=== PATIENT | female | born 1945 | race Caucasian/White ===

== ENCOUNTER 2017-02-05 15:44 | Inpatient (IN) | payer MEDICARE, OTHER ==
[~2017-02-05] VITALS: Ht 172.7 cm; Wt 115.6 kg
[2017-02-05] MEDS ORDERED: HYDR-309 PO (16:10)
[2017-02-05] MEDS ORDERED: LORA0.5T2 PO (16:10)
[2017-02-05] MEDS ORDERED: CELE100 PO (16:10)
[2017-02-05 16:40] LABS: BASOPHILS % (AUTO) 0.5 % (0.0-2.0); EOSINOPHILS % (AUTO) 1.1 % (1.0-6.0); HEMATOCRIT 42.6 % (36-46); HEMOGLOBIN 13.6 g/dL (12.0-16.0); LYMPHOCYTES # (AUTO) 2.8 K/uL (1.0-4.8); LYMPHOCYTES % (AUTO) 20.6 % (22.0-44.0); MEAN CORPUSCULAR HEMOGLOBIN 28.3 pg (26.0-34.0); MEAN CORPUSCULAR HGB CONC 31.9 G/dL (31.0-37.0); MEAN CORPUSCULAR VOLUME 89 fL (80-100); MONOCYTES % (AUTO) 7.6 % (2.0-9.0); NEUTROPHILS # (AUTO) 9.6 K/uL (1.8-7.7); NEUTROPHILS % (AUTO) 70.2 % (40.0-70.0); PLATELET COUNT (AUTO) 425 K/uL (150-450); RED CELL DISTRIBUTION WIDTH 14.2 % (11.5-14.5); WHITE BLOOD COUNT (AUTO) 13.7 K/uL (4.5-11.0)
[2017-02-05 16:51] LABS: PROTHROMBIN TIME 10.3 SEC (9.4-11.6)
[2017-02-05 17:04] LABS: ANION GAP 11 mmol/L (8-16); CALCIUM, TOTAL 9.6 mg/dL (8.8-10.5); CREATININE 0.97 mg/dL (0.60-1.30); GLOMERULAR FILTR. RATE CALC 57 mL/min (>60); SODIUM SERUM 140 mmol/L (136-145)
[2017-02-05 17:05] LABS: B-TYPE NATRIURETIC PEPTIDE 35 pg/mL (0-100); CARBON DIOXIDE 25 mmol/L (22-29); CHLORIDE 104 mmol/L (98-107); UREA NITROGEN, BLOOD 25 mg/dL (7-18)
[2017-02-05 17:08] LABS: LACTIC ACID 1.7 mmol/L (0.4-2.0)
[2017-02-05 17:13] LABS: ALANINE AMINOTRANSFERASE 24 U/L (12-78); ASPARTATE AMINOTRANSFERASE 11 U/L (15-37); BILIRUBIN,TOTAL 0.5 mg/dL (0.1-1.0); CREATINE KINASE, TOTAL 32 U/L (26-192); LACTATE DEHYDROGENASE 116 U/L (81-234); TOTAL PROTEIN, SERUM 7.6 g/dL (6.4-8.2)
[2017-02-05 17:14] LABS: ALBUMIN 3.4 g/dL (3.4-5.0)
[2017-02-05 17:43] LABS: PROCALCITONIN (PCT) < 0.05 ng/mL (<0.50)
[2017-02-05 17:44] LABS: APPEARANCE,URINE CLEAR (CLEAR); GLUCOSE, URINE (UA) NEGATIVE (NEGATIVE); KETONES,URINE NEGATIVE (NEGATIVE); LEUKOCYTE ESTERASE ,URINE NEGATIVE (NEGATIVE); OCCULT BLOOD,URINE TRACE (NEGATIVE); PROTEIN,URINE TRACE (NEGATIVE)
[2017-02-05 17:46] LABS: ADD UA MICROSCOPIC YES
[2017-02-05] MEDS ORDERED: ONDANSETRON HCL 4 MG/2 ML VIAL IVP ONE (18:00)
[2017-02-05] MEDS ORDERED: HYDROmorphone 2 MG/ML SYRINGE IVP ONE (18:00)
[2017-02-05 18:16] LABS: RBC,URINE 0-2 /HPF (0-2); WBC,URINE 0-2 /HPF (0-5)
[2017-02-05] MEDS ORDERED: ASPIRIN 325 MG TABLET PO ONE (19:30)
[2017-02-05] MEDS ORDERED: ONDANSETRON HCL 4 MG/2 ML VIAL IVP PRN (19:30)
[2017-02-05] MEDS ORDERED: 0.9% SODIUM CHLORIDE 10 ML SYRINGE IVP PRN (19:30)
[2017-02-05] MEDS ORDERED: ACETAMINOPHEN 325 MG TABLET PO PRN ×2 (19:30→23:15)
[2017-02-05] MEDS ORDERED: NITROGLYCERIN 2% (1 GM=INCH) PACKET TP ONE (19:30)
[2017-02-05 21:32] VITALS: BP 105/59
[2017-02-05] MEDS ORDERED: ZOLPIDEM TARTRATE 5 MG TABLET PO PRN (23:15)
[2017-02-05] MEDS ORDERED: IPRATROPIUM BROMIDE 0.5 MG/2.5 ML NEB SOLUTION NEB PRN (23:15)
[2017-02-05] MEDS ORDERED: ALBUTEROL SULFATE 2.5 MG/0.5 ML NEB SOLUTION NEB PRN (23:15)
[2017-02-05] MEDS ORDERED: MORPHINE SULFATE 2 MG/ML SYRINGE IVP PRN (23:30)
[2017-02-05] MEDS ORDERED: SODIUM CHLORIDE 0.9% 1,000 ML IV ONE (23:46)
[2017-02-05 23:49] VITALS: BP 94/45
[2017-02-06] VITALS (8 sets, daily range): BP systolic 84–124; BP diastolic 33–58
[2017-02-06] MEDS ORDERED: SODIUM CHLORIDE 0.9% 1,000 ML IV SCH
[2017-02-06 06:36] LABS: BASOPHILS % (AUTO) 0.6 % (0.0-2.0); EOSINOPHILS % (AUTO) 2.5 % (1.0-6.0); HEMATOCRIT 34.5 % (36-46); HEMOGLOBIN 11.1 g/dL (12.0-16.0); LYMPHOCYTES # (AUTO) 3.8 K/uL (1.0-4.8); LYMPHOCYTES % (AUTO) 32.9 % (22.0-44.0); MEAN CORPUSCULAR HEMOGLOBIN 28.7 pg (26.0-34.0); MEAN CORPUSCULAR HGB CONC 32.3 G/dL (31.0-37.0); MEAN CORPUSCULAR VOLUME 89 fL (80-100); NEUTROPHILS # (AUTO) 6.4 K/uL (1.8-7.7); PLATELET COUNT (AUTO) 369 K/uL (150-450); RED BLOOD CELL COUNT(AUTO) 3.88 MIL/uL (4.00-5.20); RED CELL DISTRIBUTION WIDTH 14.2 % (11.5-14.5); WHITE BLOOD COUNT (AUTO) 11.6 K/uL (4.5-11.0)
[2017-02-06 06:55] LABS: ALANINE AMINOTRANSFERASE 20 U/L (12-78); ALBUMIN 2.7 g/dL (3.4-5.0); ANION GAP 6 mmol/L (8-16); ASPARTATE AMINOTRANSFERASE 12 U/L (15-37); BILIRUBIN,TOTAL 0.4 mg/dL (0.1-1.0); CALCIUM, TOTAL 8.3 mg/dL (8.8-10.5); CARBON DIOXIDE 27 mmol/L (22-29); CHLORIDE 106 mmol/L (98-107); CREATININE 0.73 mg/dL (0.60-1.30); GLOMERULAR FILTR. RATE CALC > 60 mL/min (>60); POTASSIUM 4.1 mmol/L (3.5-5.1); SODIUM SERUM 139 mmol/L (136-145); UREA NITROGEN, BLOOD 21 mg/dL (7-18)
[2017-02-06] MEDS: PANTOPRAZOLE SODIUM 40 MG/VIAL IVP SCH (08:36)
[2017-02-06] MEDS: CELECOXIB 100 MG CAPSULE PO SCH ×2 (08:39→18:21)
[2017-02-06] MEDS: IPRATROPIUM BROMIDE 0.5 MG/2.5 ML NEB SOLUTION NEB SCH ×3 (08:54→20:00)
[2017-02-06] MEDS ORDERED: HYDROCODONE/ACETAMINOPHEN 5-325 MG TABLET PO SCH (09:00)
[2017-02-06] MEDS: LORazepam 0.5 MG TABLET PO SCH (09:00)
[2017-02-06] MEDS: NYSTATIN 15 GM POWDER BOTTLE TP PRN ×2 (12:14→17:23)
[2017-02-06] MEDS: ALBUTEROL SULFATE 2.5 MG/0.5 ML NEB SOLUTION NEB SCH ×2 (16:25→20:00)
[2017-02-06] MEDS: SODIUM CHLORIDE 0.9% 1,000 ML IV SCH ×2 (17:23→17:28)
[2017-02-06] MEDS: HYDROCODONE/ACETAMINOPHEN 5-325 MG TABLET PO PRN (17:33)
[2017-02-07] MEDS ORDERED: 0.9% SODIUM CHLORIDE 10 ML SYRINGE IVP PRN (00:15)
[2017-02-07] MEDS: ALBUTEROL SULFATE 2.5 MG/0.5 ML NEB SOLUTION NEB SCH ×4 (01:50→19:53)
[2017-02-07] MEDS: IPRATROPIUM BROMIDE 0.5 MG/2.5 ML NEB SOLUTION NEB SCH ×4 (01:50→19:53)
[2017-02-07] MEDS: SODIUM CHLORIDE 0.9% 1,000 ML IV SCH ×2 (04:24→12:22)
[2017-02-07 05:32] VITALS: BP 133/45
[2017-02-07 07:33] VITALS: BP 102/45
[2017-02-07] MEDS: CELECOXIB 100 MG CAPSULE PO SCH ×2 (08:31→18:20)
[2017-02-07] MEDS: PANTOPRAZOLE SODIUM 40 MG/VIAL IVP SCH (08:32)
[2017-02-07] MEDS: LORazepam 0.5 MG TABLET PO SCH (08:32)
[2017-02-07] MEDS ORDERED: LURASIDONE HCL 40 MG TABLET PO SCH (11:30)
[2017-02-07 11:39] VITALS: BP 107/41
[2017-02-07] MEDS: ESCITALOPRAM OXALATE 10 MG TABLET PO SCH (12:22)
[2017-02-07 15:06] VITALS: BP 111/44
[2017-02-07 19:41] VITALS: BP 110/67
[2017-02-07] MEDS ORDERED: DULO60CA44 PO (22:46)
[2017-02-07] MEDS: LORazepam 1 MG TABLET PO PRN (22:51)
[2017-02-07] MEDS: HYDROCODONE/ACETAMINOPHEN 5-325 MG TABLET PO PRN (22:51)
[2017-02-07 23:39] VITALS: BP 96/43
[2017-02-08] MEDS ORDERED: LURA40 PO (00:24)
[2017-02-08] MEDS ORDERED: FAMO20 PO (00:28)
[2017-02-08] MEDS ORDERED: ATOR40TA28 PO (00:28)
[2017-02-08] MEDS ORDERED: TROS60CA3 PO (00:28)
[2017-02-08] MEDS ORDERED: HYDR-4031 PO (00:28)
[2017-02-08] MEDS ORDERED: VITAD1000 PO (00:29)
[2017-02-08] MEDS ORDERED: ONDA4 PO (00:31)
[2017-02-08] MEDS ORDERED: LORA1TAB3 PO (00:31)
[2017-02-08] MEDS: ALBUTEROL SULFATE 2.5 MG/0.5 ML NEB SOLUTION NEB SCH ×4 (02:00→20:00)
[2017-02-08] MEDS: IPRATROPIUM BROMIDE 0.5 MG/2.5 ML NEB SOLUTION NEB SCH ×4 (02:00→20:00)
[2017-02-08 04:08] VITALS: BP 112/48
[2017-02-08] MEDS: SODIUM CHLORIDE 0.9% 1,000 ML IV SCH ×2 (06:09→16:57)
[2017-02-08 07:27] VITALS: BP 130/60
[2017-02-08 10:57] VITALS: BP 110/66
[2017-02-08] MEDS: CELECOXIB 100 MG CAPSULE PO SCH ×2 (12:10→19:39)
[2017-02-08] MEDS: PANTOPRAZOLE SODIUM 40 MG/VIAL IVP SCH (12:10)
[2017-02-08] MEDS: ESCITALOPRAM OXALATE 10 MG TABLET PO SCH (12:10)
[2017-02-08] MEDS: LORazepam 0.5 MG TABLET PO SCH (12:12)
[2017-02-08 14:53] VITALS: BP 101/47
[2017-02-08 19:37] VITALS: BP 122/62
[2017-02-09] VITALS (7 sets, daily range): BP systolic 104–134; BP diastolic 43–75
[2017-02-09] MEDS: HYDROCODONE/ACETAMINOPHEN 5-325 MG TABLET PO PRN ×3 (00:50→22:33)
[2017-02-09] MEDS: LORazepam 1 MG TABLET PO PRN ×2 (00:50→22:33)
[2017-02-09] MEDS: ALBUTEROL SULFATE 2.5 MG/0.5 ML NEB SOLUTION NEB SCH ×4 (01:44→21:09)
[2017-02-09] MEDS: IPRATROPIUM BROMIDE 0.5 MG/2.5 ML NEB SOLUTION NEB SCH ×4 (01:44→21:09)
[2017-02-09] MEDS: SODIUM CHLORIDE 0.9% 1,000 ML IV SCH ×3 (02:45→22:33)
[2017-02-09] MEDS: PANTOPRAZOLE SODIUM 40 MG/VIAL IVP SCH (11:40)
[2017-02-09] MEDS: ESCITALOPRAM OXALATE 10 MG TABLET PO SCH (11:41)
[2017-02-09] MEDS: CELECOXIB 100 MG CAPSULE PO SCH ×2 (11:41→17:36)
[2017-02-09] MEDS: LORazepam 0.5 MG TABLET PO SCH (11:41)
[2017-02-09] MEDS ORDERED: ALBU8HFA IH (14:47)
[2017-02-09] MEDS ORDERED: ESCI10TA PO (14:50)
[2017-02-10] MEDS: ALBUTEROL SULFATE 2.5 MG/0.5 ML NEB SOLUTION NEB SCH ×5 (02:00→21:09)
[2017-02-10] MEDS: IPRATROPIUM BROMIDE 0.5 MG/2.5 ML NEB SOLUTION NEB SCH ×5 (02:00→21:09)
[2017-02-10 05:02] VITALS: BP 111/57
[2017-02-10] MEDS: CELECOXIB 100 MG CAPSULE PO SCH ×2 (08:00→18:50)
[2017-02-10] MEDS: SODIUM CHLORIDE 0.9% 1,000 ML IV SCH ×2 (08:45→18:51)
[2017-02-10] MEDS: PANTOPRAZOLE SODIUM 40 MG/VIAL IVP SCH (09:00)
[2017-02-10] MEDS: ESCITALOPRAM OXALATE 10 MG TABLET PO SCH ×2 (09:00→12:01)
[2017-02-10] MEDS: LORazepam 0.5 MG TABLET PO SCH (09:00)
[2017-02-10 11:59] VITALS: BP 137/53
[2017-02-10] MEDS: LORazepam 1 MG TABLET PO PRN (12:01)
[2017-02-10] MEDS: HYDROCODONE/ACETAMINOPHEN 5-325 MG TABLET PO PRN ×2 (12:02→18:50)
[2017-02-10 15:50] VITALS: BP 101/42
[2017-02-10 19:48] VITALS: BP 117/52
[2017-02-11 00:46] VITALS: BP 112/52
[2017-02-11] MEDS: ALBUTEROL SULFATE 2.5 MG/0.5 ML NEB SOLUTION NEB SCH ×4 (02:00→20:00)
[2017-02-11] MEDS: IPRATROPIUM BROMIDE 0.5 MG/2.5 ML NEB SOLUTION NEB SCH ×4 (02:00→20:00)
[2017-02-11 07:22] VITALS: BP 116/62
[2017-02-11] MEDS: CELECOXIB 100 MG CAPSULE PO SCH ×2 (09:08→18:50)
[2017-02-11] MEDS: LORazepam 0.5 MG TABLET PO SCH (09:08)
[2017-02-11] MEDS: ESCITALOPRAM OXALATE 10 MG TABLET PO SCH (09:08)
[2017-02-11] MEDS: PANTOPRAZOLE SODIUM 40 MG/VIAL IVP SCH (09:08)
[2017-02-11 11:10] VITALS: BP 116/68
[2017-02-11 15:08] VITALS: BP 106/69
[2017-02-11] MEDS: HYDROCODONE/ACETAMINOPHEN 5-325 MG TABLET PO PRN (16:09)
[2017-02-11 19:57] VITALS: BP 105/51
[2017-02-11 23:40] VITALS: BP 120/56
[2017-02-12] MEDS: LORazepam 1 MG TABLET PO PRN ×2 (00:04→16:18)
[2017-02-12] MEDS: HYDROCODONE/ACETAMINOPHEN 5-325 MG TABLET PO PRN ×2 (00:04→16:18)
[2017-02-12] MEDS: IPRATROPIUM BROMIDE 0.5 MG/2.5 ML NEB SOLUTION NEB SCH ×3 (02:00→16:46)
[2017-02-12] MEDS: ALBUTEROL SULFATE 2.5 MG/0.5 ML NEB SOLUTION NEB SCH ×3 (02:00→16:46)
[2017-02-12 04:46] VITALS: BP 113/45
[2017-02-12 07:30] VITALS: BP 122/52
[2017-02-12] MEDS: PANTOPRAZOLE SODIUM 40 MG/VIAL IVP SCH (09:00)
[2017-02-12] MEDS: SODIUM CHLORIDE 0.9% 1,000 ML IV SCH (09:00)
[2017-02-12] MEDS: CELECOXIB 100 MG CAPSULE PO SCH (09:03)
[2017-02-12] MEDS: ESCITALOPRAM OXALATE 10 MG TABLET PO SCH (09:03)
[2017-02-12] MEDS: LORazepam 0.5 MG TABLET PO SCH (09:09)
[2017-02-12 11:20] VITALS: BP 116/48
[2017-02-12 14:59] VITALS: BP 114/54
== END 2017-02-12 18:20 | disposition home health service (06) | DRG 206 ==
LOC: EMS 15:48 → 5S 20:10
PROVIDERS: ADMIT Internal Medicine; ATTEND Internal Medicine
DX: M94.0 Chondrocostal junction syndrome [Tietze] (principal); J44.9 Chronic obstructive pulmonary disease, unspecified; R32 Unspecified urinary incontinence; E86.0 Dehydration; F41.9 Anxiety disorder, unspecified; F32.9 Major depressive disorder, single episode, unspecified; F17.210 Nicotine dependence, cigarettes, uncomplicated; G89.29 Other chronic pain; I10 Essential (primary) hypertension; K21.9 Gastro-esophageal reflux disease without esophagitis; Z96.649 Presence of unspecified artificial hip joint; M19.90 Unspecified osteoarthritis, unspecified site; F99 Mental disorder, not otherwise specified; Z79.891 Long term (current) use of opiate analgesic; Z79.899 Other long term (current) drug therapy; Z87.440 Personal history of urinary (tract) infections; Z71.6 Tobacco abuse counseling
CPT/HCPCS: 51702; 80307; 83605; 83615; 84145; 87040; 93005; 93306; 94640; 96374; 96375; 97161; 97165; 99285; C9113; J1170; J2405; J7030

== ENCOUNTER 2017-10-23 17:51 | Emergency (ER) | payer MEDICARE, MEDICAID ==
[~2017-10-23] VITALS: Ht 172.7 cm; Wt 79.5 kg
[~2017-10-23 17:51] MED LIST: ALBU8HFA IH; ATOR40TA28 PO; CELE100 PO; DULO60CA44 PO; ESCI10TA PO; FAMO20 PO; HYDR-4031 PO; LORA0.5T2 PO; LURA40 PO; ONDA4 PO; TROS60CA3 PO; VITAD1000 PO
[2017-10-23 19:37] LABS: BASOPHILS % (AUTO) 0.5 % (0.0-2.0); EOSINOPHILS % (AUTO) 0.6 % (1.0-6.0); HEMATOCRIT 37.4 % (36-46); HEMOGLOBIN 12.5 g/dL (12.0-16.0); LYMPHOCYTES # (AUTO) 2.9 K/uL (1.0-4.8); LYMPHOCYTES % (AUTO) 22.6 % (22.0-44.0); MEAN CORPUSCULAR HEMOGLOBIN 29.6 pg (26.0-34.0); MEAN CORPUSCULAR HGB CONC 33.4 G/dL (31.0-37.0); MEAN CORPUSCULAR VOLUME 88 fL (80-100); MONOCYTES # (AUTO) 0.7 K/uL (0.1-1.0); MONOCYTES % (AUTO) 5.6 % (2.0-9.0); NEUTROPHILS % (AUTO) 70.7 % (40.0-70.0); PLATELET COUNT (AUTO) 358 K/uL (150-450); RED BLOOD CELL COUNT(AUTO) 4.23 MIL/uL (4.00-5.20); RED CELL DISTRIBUTION WIDTH 14.7 % (11.5-14.5)
[2017-10-23 19:46] LABS: ANION GAP 10 mmol/L (8-16); CALCIUM, TOTAL 9.7 mg/dL (8.8-10.5); CARBON DIOXIDE 30 mmol/L (22-29); CHLORIDE 99 mmol/L (98-107); CREATININE 0.96 mg/dL (0.60-1.30); GLOMERULAR FILTR. RATE CALC 57 mL/min (>60); GLUCOSE,RANDOM 100 mg/dL (70-110); POTASSIUM 3.6 mmol/L (3.5-5.1); SODIUM SERUM 139 mmol/L (136-145); UREA NITROGEN, BLOOD 28 mg/dL (7-18)
[2017-10-23 19:52] LABS: ALANINE AMINOTRANSFERASE 15 U/L (12-78); ALBUMIN 3.3 g/dL (3.4-5.0); ALKALINE PHOSPHATASE 85 U/L (46-116); ASPARTATE AMINOTRANSFERASE 13 U/L (15-37); BILIRUBIN,TOTAL 1.4 mg/dL (0.1-1.0); TOTAL PROTEIN, SERUM 6.8 g/dL (6.4-8.2)
[2017-10-23 20:50] VITALS: BP 119/75
[2017-10-23 21:07] LABS: AMPHET/METH SCREEN,URINE NEGATIVE (NEGATIVE); BARBITURATE SCREEN, URINE NEGATIVE (NEGATIVE); BENZODIAZEPINES SCREEN,URINE NEGATIVE (NEGATIVE); CANNABINOID SCREEN,URINE NEGATIVE (NEGATIVE); COCAINE SCREEN,URINE NEGATIVE (NEGATIVE); METHADONE SCREEN, URINE NEGATIVE (NEGATIVE); OPIATE SCREEN,URINE POSITIVE (NEGATIVE)
[2017-10-23 21:13] LABS: PHENCYCLIDINE SCREEN,URINE NEGATIVE (NEGATIVE)
[2017-10-23 21:40] LABS: APPEARANCE,URINE CLOUDY (CLEAR); GLUCOSE, URINE (UA) NEGATIVE (NEGATIVE); KETONES,URINE 15 mg/dL (NEGATIVE); LEUKOCYTE ESTERASE ,URINE NEGATIVE (NEGATIVE); NITRATE,URINE NEGATIVE (NEGATIVE); OCCULT BLOOD,URINE NEGATIVE (NEGATIVE); PROTEIN,URINE TRACE (NEGATIVE)
[2017-10-23 21:53] LABS: BILIRUBIN,URINE PRELIM. POSITIVE (NEGATIVE)
[2017-10-23 21:55] LABS: BACTERIA,URINE Few /HPF (None Seen); RBC,URINE None Seen /HPF (0-2); WBC,URINE 0-2 /HPF (0-5)
[2017-10-23 21:56] LABS: SQUAMOUS EPITHELIAL CELL,UR Moderate /LPF (None Seen)
== END 2017-10-23 23:43 | disposition home or self-care (01) ==
LOC: EMS 17:54
DX: F32.9 Major depressive disorder, single episode, unspecified (principal); F41.9 Anxiety disorder, unspecified; K21.9 Gastro-esophageal reflux disease without esophagitis; F17.210 Nicotine dependence, cigarettes, uncomplicated
CPT/HCPCS: 36415; 71010; 80053; 80307; 81001; 82962; 84484; 85025; 93005; 99285; G0480